=== PATIENT | female | born 1960 | race Caucasian/White ===

== ENCOUNTER 2020-02-18 15:57 | Emergency (ER) | payer OTHER, MEDICARE ==
--- NOTE | 2020-02-18 16:53 | EDM.PDOCBH ---
ED HPI GENERAL MEDICAL PROBLEM - General Chief Complaint: Behavioral/Psych Stated Complaint: MEDICAL CLEARANCE Time Seen by Provider: 02/18/20 16:00 Source of Information: Reports: Patient History Limitations: Reports: No Limitations - History of Present Illness INITIAL COMMENTS - FREE TEXT/NARRATIVE: Patient presents BIBPD for medical clearance. Patient has no complaints. She denies SI HI and is cooperative and pleasant. ED ROS GENERAL - Review of Systems Review Of Systems: Comprehensive ROS is negative, except as noted in HPI. ED EXAM, BEHAVIORAL HEALTH - Physical Exam Exam: See Below Exam Limited By: No Limitations General Appearance: Alert, WD/WN, No Apparent Distress Eye Exam: Bilateral Eye: PERRL Ears: Normal External Exam Nose: Normal Inspection Throat/Mouth: Normal Inspection, Normal Voice, No Airway Compromise Head: Atraumatic, Normocephalic Neck: Normal Inspection Respiratory/Chest: No Respiratory Distress, Lungs Clear, Normal Breath Sounds, No Accessory Muscle Use Cardiovascular: Normal Peripheral Pulses, Regular Rate, Rhythm Extremities: Normal Inspection Neurological: Alert, Normal Mood/Affect Psychiatric: Alert, Normal Affect, Normal Cognition, Normal Mood Skin Exam: Warm, Dry, Intact COURSE, BEHAVIORAL HEALTH COMP - Course Re-Assessment/Re-Exam: Patient is medically cleared Departure - Departure Time of Disposition: 16:52 Disposition: Home, Self-Care 01 Condition: Good Clinical Impression: Medical clearance for incarceration - Discharge Information Instructions: Health Maintenance, Female Referrals: Prince Harris MD [Primary Care Provider] - Additional Instructions: The following information is given to patients seen in the emergency department who are being discharged to home. This information is to outline your options for follow-up care. We provide all patients seen in our emergency department with a follow-up referral. The need for follow-up, as well as the timing and circumstances, are variable depending upon the specifics of your emergency department visit. If you don't have a primary care physician on staff, we will provide you with a referral. We always advise you to contact your personal physician following an emergency department visit to inform them of the circumstance of the visit and for follow-up with them and/or the need for any referrals to a consulting specialist. The emergency department will also refer you to a specialist when appropriate. This referral assures that you have the opportunity for follow-up care with a specialist. All of these measure are taken in an effort to provide you with optimal care, which includes your follow-up. Under all circumstances we always encourage you to contact your private physician who remains a resource for coordinating your care. When calling for follow-up care, please make the office aware that this follow-up is from your recent emergency room visit. If for any reason you are refused follow-up, please contact the [facility] Emergency Department at and asked to speak to the emergency department charge nurse. Please follow up with your primary care physician. If you do not have a primary care physician, see below: [facility] [address] [place] [id number] [facility] [address] [place] [id number]
== END 2020-02-18 16:55 | disposition home or self-care (01) ==
LOC: MW.ED 15:57
DX: Z02.89 Encounter for other administrative examinations (principal)
CPT/HCPCS: 99281; 99282

== ENCOUNTER 2020-04-07 17:51 | Emergency (ER) | payer OTHER, MEDICARE ==
[2020-04-07] MEDS ORDERED: Sodium Chloride 0.9% 1,000 ML IV ONE (18:54)
--- NOTE | 2020-04-07 19:47 | CR ---
INDICATION: Hypoxia. COVID positive. COMPARISON: None. FINDINGS/IMPRESSION: Upright portable AP chest radiograph. Bilateral nonspecific patchy pulmonary infiltrates, worse on the right than the left. An infectious/inflammatory etiology is possible, including COVID-19 pneumonia. No pleural effusions are noted. Heart size appears normal. Included bones are unremarkable. Dictated by Ricardo Bautista MD @ 04/07/2020 7:45:37 PM Dictated by: Ricardo Bautista MD @ 04/07/2020 19:46:13 (Electronically Signed)
[2020-04-07 20:21] LABS: BLOOD UREA NITROGEN,BUN 17 mg/dL (7.0-18.0); CARBON DIOXIDE,CO2 26.3 mmol/L (21.0-32.0); CHLORIDE,CL 102 mmol/L (98-107); GLUCOSE RANDOM 141 mg/dL (74-106); LIPASE 49 U/L (73-393); SODIUM,NA 139 mmol/L (136-145)
[2020-04-07] MEDS ORDERED: Potassium Chloride 10% 20 MEQ/15 ML Soln 30 ML UD Cup PO ONE (20:57)
[2020-04-07] MEDS ORDERED: Acetaminophen 325 MG Tab PO ONE (20:57)
--- NOTE | 2020-04-07 20:58 | EDM.PDOC ---
ED HPI GENERAL MEDICAL PROBLEM - General Chief Complaint: Respiratory Problem Stated Complaint: COVID POSITIE,LETHARGIC,DIARRHEA Time Seen by Provider: 04/07/20 19:15 Source of Information: Reports: Patient History Limitations: Reports: No Limitations - History of Present Illness INITIAL COMMENTS - FREE TEXT/NARRATIVE: 59-year-old female with presents with Covid symptoms. She was tested positive on Saturday. She admits to diffuse myalgia, generalized malaise, cough, shortness of breath, decreased appetite, loss of taste and smell, nausea, vomiting for 1 week, and nonbloody diarrhea for 2 weeks. She states her stomach aches with coughing. She has been taking DayQuil and NyQuil. ROS: A 10-point review of systems, other than pertinent positives and negatives as stated per HPI, is otherwise negative Past medical history: No additional pertinent history Past Surgical history: No additional pertinent history Social history: No additional pertinent history Family history: No additional pertinent history PHYSICAL EXAM General: AOx4, GCS = 15, No distress HEENT: dry mucous membrane Neck: supple, no meningismus, no Kernig or Brudzinski Cardiac: S1S2 RRR Respiratory: CTAB, no crackles or rales, no wheezing Abdomen: Soft, nontender, no rebound or guarding, nondistended, no pulsatile m ass. Back: nontender Musculoskeletal: NVI distally, no deformity Neuro: No focal deficits, CN 2 - 12 WNL. left side Pain Score (Numeric/FACES): 10 - Related Data Allergies Allergy/AdvReac Type Severity Reaction Status Date / Time No Known Allergies Allergy Verified 04/07/20 18:33 Home Meds: Home Meds Azithromycin [Zithromax] 250 mg PO DAILY #6 tab 04/07/20 [Rx] Benzonatate 100 mg PO BID #10 capsule 04/07/20 [Rx] DULoxetine [Cymbalta] 90 mg PO DAILY 04/07/20 [History] Ondansetron [Zofran ODT] 4 mg PO Q6H PRN #12 tab.dis 04/07/20 [Rx] Past Medical History MALE MODEL History: Reports: Psychiatric History: Reports: Depression - Past Surgical History Female Surgical History: Reports: Hysterectomy Neurological Surgical History: Reports: Other (See Below) Other Neurological Surgeries/Procedures: Back x3 Social & Family History - Family History Family Medical History: No Pertinent Family History - Tobacco Use Tobacco Use Status *Q: Current Every Day Tobacco User Years of Tobacco use: 20 Packs/Tins Daily: 0.5 - Recreational Drug Use Recreational Drug Use: No ED ROS GENERAL - Review of Systems Review Of Systems: See Below (see dictation) ED EXAM, GENERAL - Physical Exam Exam: See Below (see dictation) #1 Interpretation EKG Interpretation Comments: Heart rate = 90 bpm, normal sinus rhythm, normal QRS interval, no STEMI. EKG and rhythm strip interpreted by me at 2033 Course - Vital Signs Last Recorded V/S: Last Vital Signs Temp 100.2 F 04/07/20 18:30 Pulse 92 04/07/20 18:30 Resp 20 04/07/20 18:30 BP 111/73 04/07/20 18:30 Pulse Ox 90 L 04/07/20 18:30 - Orders/Labs/Meds Orders: Active Orders 24 hr Category Date Time Status Cardiac Monitoring [RC] . DIRECTED Care 04/07/20 19:20 Active EKG Documentation Completion [RC] STAT Care 04/07/20 19:21 Active Nurse Communication: Isolation [RC] ASDIRECTED Care 04/07/20 19:21 Active FERRITIN [CHEM] Routine Lab 04/07/20 19:15 Received PROCALCITONIN [REF] Stat Lab 04/07/20 19:15 Received Isolation [COMM] Stat Oth 04/07/20 19:21 Active Labs: Laboratory Tests 04/07/20 04/07/20 04/07/20 Range/Units 19:15 19:15 19:15 WBC 9.77 (4.0-11.0) K/uL RBC 4.61 (4.30-5.90) M/uL Hgb 14.4 (12.0-16.0) g/dL Hct 41.9 (36.0-46.0) % MCV 90.9 (80.0-98.0) fL MCH 31.2 (27.0-32.0) pg MCHC 34.4 (31.0-37.0) g/dL RDW Std Deviation 42.0 (28.0-62.0) fl RDW Coeff of Jeaneth 13 (11.0-15.0) % Plt Count 178 (150-400) K/uL MPV 10.80 (7.40-12.00) fL Add Manual Diff YES Neutrophils % (Manual) 83 H (48.0-80.0) % Lymphocytes % (Manual) 14 L (16.0-40.0) % Monocytes % (Manual) 3 (0.0-15.0) % Nucleated RBC % 0.0 /100WBC Absolute Seg Neuts 8.1 H (1.4-5.7) Lymphocytes # (Manual) 1.4 (0.6-2.4) Monocytes # (Manual) 0.3 (0.0-0.8) Nucleated RBCs # 0 K/uL INR D-Dimer, Quantitative (0.0-0.50) mg/L FEU Lactate (0.20-2.00) mmol/L Sodium 139 (136-145) mmol/L Potassium 3.0 L (3.5-5.1) mmol/L Chloride 102 (98-107) mmol/L Carbon Dioxide 26.3 (21.0-32.0) mmol/L BUN 17 (7.0-18.0) mg/dL Creatinine 0.9 (0.6-1.0) mg/dL Est Cr Clr Drug Dosing 67.07 mL/min Estimated GFR (MDRD) > 60.0 ml/min Glucose 141 H (74-106) mg/dL Calcium 8.1 L (8.5-10.1) mg/dL Total Bilirubin 0.2 (0.2-1.0) mg/dL AST 38 H (15-37) IU/L ALT 24 (14-63) IU/L Alkaline Phosphatase 101 (46-116) U/L Lactate Dehydrogenase 456 H (81-234) U/L C-Reactive Protein 11.00 H (0.00-0.90) mg/dL Total Protein 6.6 (6.4-8.2) g/dL Albumin 3.0 L (3.4-5.0) g/dL Globulin 3.6 (2.6-4.0) g/dL Albumin/Globulin Ratio 0.8 L (0.9-1.6) Lipase 49 L (73-393) U/L 04/07/20 04/07/20 04/07/20 Range/Units 19:15 19:15 19:15 WBC (4.0-11.0) K/uL RBC (4.30-5.90) M/uL Hgb (12.0-16.0) g/dL Hct (36.0-46.0) % MCV (80.0-98.0) fL MCH (27.0-32.0) pg MCHC (31.0-37.0) g/dL RDW Std Deviation (28.0-62.0) fl RDW Coeff of Jeaneth (11.0-15.0) % Plt Count (150-400) K/uL MPV (7.40-12.00) fL Add Manual Diff Neutrophils % (Manual) (48.0-80.0) % Lymphocytes % (Manual) (16.0-40.0) % Monocytes % (Manual) (0.0-15.0) % Nucleated RBC % /100WBC Absolute Seg Neuts (1.4-5.7) Lymphocytes # (Manual) (0.6-2.4) Monocytes # (Manual) (0.0-0.8) Nucleated RBCs # K/uL INR 1.01 D-Dimer, Quantitative 1.41 H (0.0-0.50) mg/L FEU Lactate 1.6 (0.20-2.00) mmol/L Sodium (136-145) mmol/L Potassium (3.5-5.1) mmol/L Chloride (98-107) mmol/L Carbon Dioxide (21.0-32.0) mmol/L BUN (7.0-18.0) mg/dL Creatinine (0.6-1.0) mg/dL Est Cr Clr Drug Dosing mL/min Estimated GFR (MDRD) ml/min Glucose (74-106) mg/dL Calcium (8.5-10.1) mg/dL Total Bilirubin (0.2-1.0) mg/dL AST (15-37) IU/L ALT (14-63) IU/L Alkaline Phosphatase (46-116) U/L Lactate Dehydrogenase (81-234) U/L C-Reactive Protein (0.00-0.90) mg/dL Total Protein (6.4-8.2) g/dL Albumin (3.4-5.0) g/dL Globulin (2.6-4.0) g/dL Albumin/Globulin Ratio (0.9-1.6) Lipase (73-393) U/L Meds: Medications Discontinued Medications Generic Name Dose Route Start Last Admin Trade Name Bravo PRN Reason Stop Dose Admin Acetaminophen 650 mg 04/07/20 20:57 Tylenol PO 04/07/20 20:58 NOW ONE Sodium Chloride 1,000 mls @ 999 mls/hr 04/07/20 18:54 04/07/20 19:12 Normal Saline IV 04/07/20 19:54 999 mls/hr .BOLUS ONE Administration Potassium Chloride 40 meq 04/07/20 20:57 Potassium Chloride PO 04/07/20 20:58 ONETIME ONE - Re-Assessments/Exams Free Text/Narrative Re-Assessment/Exam: 04/07/20 20:55 After IV fluids in the ER, the patient improved and is currently stable for discharge. I performed a repeat exam and did not appreciate new abnormal findings. Patient exhibits normal vital signs and has a normal gait on road test. Her pulse ox was 94% on room air. She did not exhibit respiratory distress, tachypnea or retractions. I advised the patient to return to the ER for reevaluation if symptoms worsened, including fever, worsening pain, or any other worrisome symptoms. I instructed the patient to follow up with their PCP within 2-3 days. MEDICAL DECISION MAKING: I reviewed the patients past medical records, lab and radiographic findings. I discussed the case with the patient. My differential diagnosis included: COVID, pneumonia, dehydration. His potassium = 3.0, repleted in the ER. Her kidney function unremarkable. Her dehydration was improved after IV fluids. Chest x-ray demonstrated bilateral infiltrates consistent with Covid pneumonia. She was not hypoxic in the ER, no respiratory distress or tachypnea or retractions, she is stable for outpatient antibiotic treatment for her bilateral infiltrates. Departure - Departure Time of Disposition: 20:57 Disposition: Home, Self-Care 01 Condition: Good Clinical Impression: Hypokalemia, COVID-19, Pneumonia due to COVID-19 virus - Discharge Information *PRESCRIPTION DRUG MONITORING PROGRAM REVIEWED*: Not Applicable *COPY OF PRESCRIPTION DRUG MONITORING REPORT IN PATIENT JESS: Not Applicable Prescriptions: Benzonatate 100 mg PO BID #10 capsule Azithromycin [Zithromax] 250 mg PO DAILY #6 tab Ondansetron [Zofran ODT] 4 mg PO Q6H PRN #12 tab.dis PRN Reason: Vomiting Instructions: COVID-19 Frequently Asked Questions, COVID-19, Hypokalemia, COVID-19: How to Protect Yourself and Others - CDC, Prevent the Spread of COVID- 19 if You Are Sick - CDC Referrals: Prince Harris MD [Primary Care Provider] - 3 Days Forms: ED Department Discharge Additional Instructions: The need for follow-up, as well as the timing and circumstances, are variable depending upon the specifics of your emergency department visit. If you don't have a primary care physician on staff, we will provide you with a referral. We always advise you to contact your personal physician following an emergency department visit to inform them of the circumstance of the visit and for follow-up with them and/or the need for any referrals to a consulting specialist. The emergency department will also refer you to a specialist when appropriate. This referral assures that you have the opportunity for follow-up care with a specialist. All of these measure are taken in an effort to provide you with optimal care, which includes your follow-up. Under all circumstances we always encourage you to contact your private physician who remains a resource for coordinating your care. When calling for follow-up care, please make the office aware that this follow-up is from your recent emergency room visit. If for any reason you are refused follow-up, please contact the Emergency Department at and asked to speak to the emergency department charge nurse. If you do not have a primary care doctor, please follow up with the clinics below within 3-5 days. Martina Purdy [facility] [address] [place] [address] [facility] [address] [place] [address] Sepsis Event Note (ED) - Evaluation Sepsis Screening Result: No Definite Risk - Focused Exam Vital Signs: Vital Signs Temp Pulse Resp BP Pulse Ox 04/07/20 18:30 100.2 F 92 20 111/73 90 L - My Orders Last 24 Hours: My Active Orders 04/07/20 19:15 FERRITIN [CHEM] Routine PROCALCITONIN [REF] Stat 04/07/20 19:20 Cardiac Monitoring [RC] . DIRECTED 04/07/20 19:21 EKG Documentation Completion [RC] STAT Nurse Communication: Isolation [RC] ASDIRECTED Isolation [COMM] Stat - Assessment/Plan Last 24 Hours: My Active Orders 04/07/20 19:15 FERRITIN [CHEM] Routine PROCALCITONIN [REF] Stat 04/07/20 19:20 Cardiac Monitoring [RC] . DIRECTED 04/07/20 19:21 EKG Documentation Completion [RC] STAT Nurse Communication: Isolation [RC] ASDIRECTED Isolation [COMM] Stat
[2020-04-07] MEDS ORDERED: Ondansetron 4 MG Tab.DIS PO ONE (21:14)
[2020-04-07] MEDS ORDERED: Ondansetron 4 MG Tab.DIS ONE (21:15)
== END 2020-04-07 21:21 | disposition home or self-care (01) ==
LOC: MW.ED 17:51
DX: U07.1 COVID-19 (principal); J12.89 Other viral pneumonia; E87.6 Hypokalemia; F32.9 Major depressive disorder, single episode, unspecified; F17.210 Nicotine dependence, cigarettes, uncomplicated; Z79.899 Other long term (current) drug therapy
CPT/HCPCS: 36415; 71045; 80053; 82728; 83605; 83615; 83690; 84145; 85025; 85379; 85610; 86140; 93005; 99285; A9270; J7030; 93010; 99283

== ENCOUNTER 2021-09-29 09:20 | Day surgery (SDC) | payer OTHER, MEDICARE ==
[~2021-09-29 09:20] MED LIST: Lactated Ringers 1,000 ML IV SCH; Propofol 200 MG/20 ML SDV ONE; fentaNYL 100 MCG/2 ML SDV ONE
== END 2021-09-29 13:05 | disposition home or self-care (01) ==
LOC: MW.SDS 09:20
PROVIDERS: ATTEND Surgery
DX: Z12.11 Encounter for screening for malignant neoplasm of colon (principal); J44.9 Chronic obstructive pulmonary disease, unspecified; F41.8 Other specified anxiety disorders; M79.7 Fibromyalgia; E66.9 Obesity, unspecified; G47.00 Insomnia, unspecified; F17.210 Nicotine dependence, cigarettes, uncomplicated; Z68.32 Body mass index [BMI] 32.0-32.9, adult; Z98.890 Other specified postprocedural states; Z79.51 Long term (current) use of inhaled steroids; Z79.899 Other long term (current) drug therapy; Z80.0 Family history of malignant neoplasm of digestive organs
CPT/HCPCS: G0105; J2704; J3010; J7120; 00812

== ENCOUNTER 2023-12-20 09:42 | Emergency (ER) | payer OTHER ==
[2023-12-20] MEDS: Propofol 200 MG/20 ML SDV IVPUSH ONE (11:21)
== END 2023-12-20 13:20 | disposition home or self-care (01) ==
LOC: MW.ED 09:42
DX: T84.021A Dislocation of internal left hip prosthesis, initial encounter (principal); J44.9 Chronic obstructive pulmonary disease, unspecified; Z79.899 Other long term (current) drug therapy; Z90.710 Acquired absence of both cervix and uterus
CPT/HCPCS: 27250; 73502; 99284; J2704; 99283

== ENCOUNTER 2024-01-29 13:43 | Emergency (ER) | payer OTHER ==
[2024-01-29] MEDS: HYDROmorphone 0.5 MG/0.5 ML Syringe ONE (14:34)
[2024-01-29] MEDS: HYDROmorphone 0.5 MG/0.5 ML Syringe IVPUSH ONE (14:40)
[2024-01-29] MEDS: Ondansetron 4 MG/2 ML SDV IVPUSH ONE (15:52)
[2024-01-29] MEDS: Sodium Chloride 0.9% 1,000 ML IV ONE (15:52)
[2024-01-29] MEDS: Propofol 200 MG/20 ML SDV IVPUSH PRN (15:53)
[2024-01-29] MEDS ORDERED: Acetaminophen/oxyCODONE 325-5 MG Tab PO PRN (16:09)
[2024-01-29] MEDS: Acetaminophen 500 MG Tab PO ONE ×2 (16:14→16:42)
[2024-01-29] MEDS: Ketorolac 30 MG/ML SDV IVPUSH ONE (16:42)
== END 2024-01-29 16:54 | disposition home or self-care (01) ==
LOC: MW.ED 13:43
DX: T84.020A Dislocation of internal right hip prosthesis, initial encounter (principal); J44.9 Chronic obstructive pulmonary disease, unspecified; E66.9 Obesity, unspecified; Z90.710 Acquired absence of both cervix and uterus; Z79.899 Other long term (current) drug therapy; Z68.32 Body mass index [BMI] 32.0-32.9, adult
CPT/HCPCS: 27250; 73501; 96374; 96375; 99152; 99284; A9270; J1170; J1885; J2405; J2704; J7030

== ENCOUNTER 2024-02-19 12:28 | Emergency (ER) | payer OTHER ==
[2024-02-19] MEDS: Morphine 4 MG/ML Syringe IVPUSH ONE (12:58)
[2024-02-19] MEDS: Propofol 200 MG/20 ML SDV IVPUSH ONE ×2 (13:25→13:27)
== END 2024-02-19 14:45 | disposition home or self-care (01) ==
LOC: MW.ED 12:28
DX: S73.015A Posterior dislocation of left hip, initial encounter (principal); J44.9 Chronic obstructive pulmonary disease, unspecified; E66.9 Obesity, unspecified; Z90.710 Acquired absence of both cervix and uterus; Z75.8 Other problems related to medical facilities and other health care; Z79.899 Other long term (current) drug therapy; Z79.51 Long term (current) use of inhaled steroids; Z68.34 Body mass index [BMI] 34.0-34.9, adult; X50.1XXA Overexertion from prolonged static or awkward postures, initial encounter
CPT/HCPCS: 27265; 73502; 96374; 99284; J2270; J2704

== ENCOUNTER 2024-04-06 10:00 | Day surgery (SDC) | payer OTHER ==
[2024-04-06] MEDS ORDERED: Sodium Chloride 0.9% 10 ML Syringe FLUSH PRN (10:42)
[2024-04-06] MEDS ORDERED: Sodium Chloride 0.9% 2.5 ML Syringe FLUSH PRN (10:42)
[2024-04-06] MEDS: Morphine 4 MG/ML Syringe IVPUSH ONE (11:10)
[2024-04-06] MEDS: Propofol 200 MG/20 ML SDV IVPUSH ONE ×4 (11:48→12:11)
[2024-04-06] MEDS: HYDROmorphone 0.5 MG/0.5 ML Syringe IVPUSH ONE ×2 (13:13→14:52)
[2024-04-06] MEDS ORDERED: fentaNYL 100 MCG/2 ML SDV ONE (15:40)
[2024-04-06] MEDS ORDERED: Propofol 200 MG/20 ML SDV ONE (15:40)
[2024-04-06] MEDS ORDERED: Water For Injection, Sterile 20 ML ONE (15:40)
[2024-04-06] MEDS ORDERED: dexmedeTOMIDine HCl 200 MCG/2 ML SDV ONE (15:40)
[2024-04-06] MEDS ORDERED: Ondansetron 4 MG/2 ML SDV ONE (16:53)
[2024-04-06] MEDS ORDERED: Dexamethasone 4 MG/ML 5 ML MDV ONE (16:53)
== END 2024-04-06 19:30 | disposition home or self-care (01) ==
LOC: MW.ED 10:00 → MW.SDS 13:36 → MW.MS 18:47 → MW.SDS 19:30
PROVIDERS: ATTEND Orthopaedic Surgery
DX: T84.020A Dislocation of internal right hip prosthesis, initial encounter (principal); J44.9 Chronic obstructive pulmonary disease, unspecified; F32.A Depression, unspecified; Z79.899 Other long term (current) drug therapy; Y83.9 Surgical procedure, unspecified as the cause of abnormal reaction of the patient, or of later complication, without mention of misadventure at the time of the procedure
CPT/HCPCS: 27250; 27266; 73502; 76000; 96374; 96375; 96376; 99284; J1100; J1171; J2270; J2405; J2704; J3010; J3490